=== PATIENT | male | born 1975 | race Caucasian/White ===

== ENCOUNTER 2016-12-26 10:27 | Emergency (ER) | payer MEDICAID ==
[2010-08-30 11:10] VITALS: BMI 25.5
== END 2016-12-26 15:35 | disposition home or self-care (01) ==
LOC: D.ER 10:27
DX: M25.531 Pain in right wrist (principal); M19.031 Primary osteoarthritis, right wrist; J45.909 Unspecified asthma, uncomplicated; F20.0 Paranoid schizophrenia; F31.89 Other bipolar disorder; F17.200 Nicotine dependence, unspecified, uncomplicated

== ENCOUNTER 2017-06-08 00:08 | Emergency (ER) | payer MEDICAID ==
[2010-08-30 11:10] VITALS: BMI 25.5
[2017-06-08 00:44] LABS: BASOPHILS 0.1 % (0-2); EOSINOPHILS 2.3 % (0-7); HEMATOCRIT 44.4 % (42.0-54.0); HEMOGLOBIN 15.3 g/dL (13.5-17.5); IMMATURE GRANULOCYTES 0.2 % (0-5); LYMPHOCYTES 10.9 % (15-50); MCHC 34.5 g/dL (31.0-37.0); MCV 90.1 fL (80.0-100.0); MEAN PLATELET VOLUME 11.1 fL (7.4-10.4); MONOCYTES 4.9 % (2-11); NEUTROPHILS 81.6 % (40-80); RBC 4.93 10x6/uL (4.20-6.10); WBC 10.8 10x3/uL (4.8-10.8)
[2017-06-08 00:45] LABS: PLATELET COUNT 175 10x3/uL (130-400)
[2017-06-08 00:57] LABS: ALBUMIN 3.2 g/dL (3.4-5.0); ALKALINE PHOSPHATASE 64 U/L (46-116); ALT (SGPT) 22 U/L (10-68); CALC OSMOLALITY 271 mosm/kg (275-300); CALCIUM 8.3 mg/dL (8.5-10.1); CARBON DIOXIDE 26.9 mmol/L (21.0-32.0); CHLORIDE - SERUM 99 mmol/L (98-107); CREATININE - SERUM 1.3 mg/dL (0.6-1.3); GLUCOSE 114 mg/dL (74-106); PROTEIN - SERUM 6.7 g/dL (6.4-8.2); SODIUM 136 mmol/L (136-145); UREA NITROGEN 11 mg/dL (7-18); eGFR NON AFRICAN AMERICAN 65 mL/min (90-120)
[2017-06-08 01:05] LABS: CHOL - HDL RATIO 5.1 ratio (2.3-4.9); CHOLESTEROL, TOTAL 137 mg/dL (0-200); CKMB 0.2 U/L (0.0-3.6); CREATINE KINASE 92 UL (21-232); HDL CHOLESTEROL 27 mg/dL (32-96); LDL CHOLESTEROL 71 mg/dL (0-100); LDL-HDL RATIO 2.6 ratio (1.5-3.5); TRIGLYCERIDE 195 mg/dL (30-200); TROPONIN-I < 0.017 ng/mL (0.000-0.060)
== END 2017-06-08 06:00 | disposition home or self-care (01) ==
LOC: D.ER 00:08
PROVIDERS: Emergency Medicine
DX: R07.9 Chest pain, unspecified (principal); I10 Essential (primary) hypertension; F17.200 Nicotine dependence, unspecified, uncomplicated; R00.0 Tachycardia, unspecified

== ENCOUNTER 2019-04-13 15:25 | Emergency (ER) | payer SELFPAY ==
[~2019-04-13] VITALS: Ht 167.6 cm; Wt 71.4 kg
[2019-04-13 15:39] VITALS: Ht 167.6 cm; Wt 71.4 kg
[2019-04-13] MEDS ORDERED: ZITHROMAX500 MG PO (17:21)
[2019-04-13] MEDS ORDERED: CIPRODEX OTIC7.5 ML RIGHT EAR (17:21)
[2019-04-13 18:16] VITALS: BP 161/101
== END 2019-04-13 18:16 | disposition home or self-care (01) ==
LOC: D.ER 15:25
DX: H60.91 Unspecified otitis externa, right ear (principal)

== ENCOUNTER 2019-05-24 18:33 | Emergency (ER) | payer SELFPAY ==
[~2019-05-24] VITALS: Ht 167.6 cm; Wt 68.2 kg
[~2019-05-24 18:33] MED LIST: CIPRODEX OTIC7.5 ML RIGHT EAR; ZITHROMAX500 MG PO
[2019-05-24 18:41] VITALS: Ht 167.6 cm; Wt 68.2 kg
[2019-05-24] MEDS ORDERED: LISINOPRIL20 MG PO (18:43)
[2019-05-24 19:32] LABS: BASOPHILS 0.4 % (0-2); EOSINOPHILS 2.1 % (0-7); HEMATOCRIT 48.5 % (42.0-54.0); HEMOGLOBIN 16.3 g/dL (13.5-17.5); IMMATURE GRANULOCYTES 0.2 % (0-5); MCH 29.5 pg (26.0-34.0); MCHC 33.6 g/dL (31.0-37.0); MCV 87.9 fL (80.0-100.0); MEAN PLATELET VOLUME 10.3 fL (7.4-10.4); MONOCYTES 8.6 % (2-11); NEUTROPHILS 44.7 % (40-80); RBC 5.52 10x6/uL (4.20-6.10); WBC 8.1 10x3/uL (4.8-10.8)
[2019-05-24 19:35] LABS: PLATELET COUNT 258 10x3/uL (130-400)
[2019-05-24 19:43] LABS: ANION GAP 12.8 mmol/L (8-16); CALCIUM 8.7 mg/dL (8.5-10.1); CARBON DIOXIDE 26.2 mmol/L (21.0-32.0); CREATININE - SERUM 1.2 mg/dL (0.6-1.3)
[2019-05-24 19:49] LABS: ALBUMIN 3.4 g/dL (3.4-5.0); BILIRUBIN - TOTAL 0.29 mg/dL (0.2-1.3); PROTEIN - SERUM 7.6 g/dL (6.4-8.2)
[2019-05-24] MEDS ORDERED: KEPPRA500 MG PO (21:17)
[2019-05-24 21:35] VITALS: BP 179/120
== END 2019-05-24 21:35 | disposition home or self-care (01) ==
LOC: D.ER 18:33
PROVIDERS: Family Medicine
DX: R56.9 Unspecified convulsions (principal); I10 Essential (primary) hypertension; F17.210 Nicotine dependence, cigarettes, uncomplicated; R51 Headache

== ENCOUNTER 2019-08-15 14:49 | Emergency (ER) | payer SELFPAY ==
[~2019-08-15] VITALS: Ht 167.6 cm; Wt 71.4 kg
[~2019-08-15 14:49] MED LIST changes: +KEPPRA500 MG PO; +LISINOPRIL20 MG PO
[2019-08-15 17:32] VITALS: BP 165/121; Ht 167.6 cm; Wt 71.4 kg
[2019-08-15 18:06] LABS: BASOPHILS 0.4 % (0-2); EOSINOPHILS 1.9 % (0-7); HEMATOCRIT 44.7 % (42.0-54.0); HEMOGLOBIN 14.8 g/dL (13.5-17.5); IMMATURE GRANULOCYTES 0.1 % (0-5); LYMPHOCYTES 38.5 % (15-50); MCH 29.6 pg (26.0-34.0); MCHC 33.1 g/dL (31.0-37.0); MCV 89.4 fL (80.0-100.0); MEAN PLATELET VOLUME 9.9 fL (7.4-10.4); MONOCYTES 7.8 % (2-11); NEUTROPHILS 51.3 % (40-80); PLATELET COUNT 238 10x3/uL (130-400); RDW 13.8 % (11.5-14.5)
[2019-08-15 18:16] LABS: ANION GAP 11.5 mmol/L (8-16); CALCIUM 8.6 mg/dL (8.5-10.1); CARBON DIOXIDE 28.4 mmol/L (21.0-32.0); CREATININE - SERUM 1.4 mg/dL (0.6-1.3); POTASSIUM - SERUM 3.9 mmol/L (3.5-5.1)
[2019-08-15 18:20] LABS: ALBUMIN 3.4 g/dL (3.4-5.0); BILIRUBIN - TOTAL 0.33 mg/dL (0.2-1.3); MAGNESIUM - SERUM 2.1 mg/dL (1.8-2.4); PROTEIN - SERUM 7.3 g/dL (6.4-8.2)
[2019-08-15 19:03] LABS: APPEARANCE CLEAR (CLEAR); BILIRUBIN NEGATIVE (NEGATIVE); COLOR YELLOW (YELLOW); GLUCOSE NEGATIVE (NEGATIVE); KETONE NEGATIVE (NEGATIVE); NITRITE NEGATIVE (NEGATIVE); PROTEIN NEGATIVE (NEGATIVE); SPECIFIC GRAVITY 1.015 (1.005-1.020); UROBILINOGEN NORMAL (NORMAL)
[2019-08-15 19:12] LABS: UDS - AMPHET POSITIVE QUAL (NEGATIVE); UDS - BARB NEGATIVE QUAL (NEGATIVE); UDS - BENZO NEGATIVE QUAL (NEGATIVE); UDS - COCAINE NEGATIVE QUAL (NEGATIVE); UDS - OPIATE NEGATIVE QUAL (NEGATIVE); UDS - PCP NEGATIVE QUAL (NEGATIVE); UDS - THC POSITIVE QUAL (NEGATIVE)
--- NOTE | 2019-08-15 19:34 | NUR ---
DR LINDER NOTIFIED AND SITTER ORDERED. SITTER AT BEDSIDE. PATIENT MAKING PASSIVE SUICIDAL STATEMENTS AND ACTIVE HOMICIDAL STATEMENTS. STATED THAT HE DID NOT WISH TO GO TO A MENTAL HEALTH FACILITY BECAUSE THEY WOULD SEND HIM BACK TO [place] TO THE FACILITY FROM WHICH HE ESCAPED RECENTLY. STATED THAT HE WAS PLANNING ON WALKING OUT OF HERE ON HIS OWN TWO FEET AND GOING HOME. STATED THAT HE WOULD KILL ANYONE WHO TRIED TO STOP HIM FROM LEAVING ON HIS OWN ACCORD. PHYSICIAN AND CHARGE NURSE NOTIFIED OF SITUATION. POLICE CALLED. PATIENT SEEN ON CAMERA ATTEMPTING TO REMOVE STEEL IV POLE FROM HIS BED. PATIENT VERY ANGRY AND BELLIGERANT, CURSING, THREATENING, FIGHTING. STAFF UNABLE TO SIT WITH PATIENT DUE TO THE DANGER OF THE SITUATION. POLICE PRESENT, PT IN POLICE CUSTODY AND REMOVED FROM UNIT. CUSTODY, THEREFORE NO SITTER REQUIRED.
== END 2019-08-15 19:57 ==
LOC: D.ER 14:49
PROVIDERS: Family Medicine
DX: R45.850 Homicidal ideations (principal); R45.851 Suicidal ideations; I10 Essential (primary) hypertension; Z72.0 Tobacco use